=== PATIENT | female | born 1975 ===

== ENCOUNTER 2016-12-29 13:13 | Emergency (ER) | payer OTHER ==
[2016-12-29 13:20] VITALS: BP 103/57
--- NOTE | 2016-12-29 14:42 | RAD ---
Indication: Left rib pain. 3 views of left ribs demonstrates no fracture. No other bone or joint abnormality is identified. IMPRESSION: No fracture of the left ribs is noted.
--- NOTE | 2016-12-29 16:19 | UC ---
Truncal Trauma HPI - HPI Summary HPI Summary: LAST WEEK WAS CLEARING SHRUBBER FROM CAMP SITE, USING LARGE PRUNING MARILYN AND RESTING WEIGHT ONTO LEFT RIBS. SINCE THAT TIME HAS HAD LEFT RIB PAIN WORSE WITH MOVEMENT. NO SOB. NO CHEST PAIN. NO COUGH. NO RECENT TRAVEL. NO CALF PAIN. NO BIRTHCONTROL PILLS. NO NECK OR JAW PAIN. NO FEVER. NO BRUISING. NO RASHES. - History Of Current Complaint Chief Complaint: UCUpperExtremity Stated Complaint: RIB PAIN Time Seen by Provider: 12/29/16 13:40 Hx Obtained From: Patient Hx Last Menstrual Period: 12/24/16 Onset/Duration: Sudden Onset, Lasting Weeks, Still Present Onset Of Pain: Post Accident Severity Initially: Mild Severity Currently: Mild Pain Intensity: 2 Pain Scale Used: 0-10 Numeric Mechanism Of Injury: Blunt Trauma, Twisted Aggravating Factor(s): Movement Alleviating factor(s): Rest Associated Signs And Symptoms: Negative: SOB, Chest Pain, Hematuria, Abdominal Pain, Fever, Nausea, Vomiting - Allergies/Home Medications Allergies/Adverse Reactions: Allergies Allergy/AdvReac Type Severity Reaction Status Date / Time No Known Allergies Allergy Verified 12/29/16 13:20 Home Medications: Home Medications NK [No Home Medications Reported] 12/29/16 [History Confirmed 12/29/16] PMH/Surg Hx/FS Hx/Imm Hx Previously Healthy: Yes - Surgical History Surgical History: None - Family History Known Family History: Negative: Cardiac Disease, Respiratory Disease, Blood Disorder - Social History Occupation: Employed Full-time Lives: With Family Alcohol Use: Weekly Substance Use Type: None Smoking Status (MU): Never Smoked Tobacco Review of Systems Constitutional: Negative Skin: Negative Eyes: Negative ENT: Negative Respiratory: Other - LEFT SIDED RIB PAIN Cardiovascular: Negative Gastrointestinal: Negative Genitourinary: Negative Motor: Negative Neurovascular: Negative Musculoskeletal: Negative Neurological: Negative Psychological: Negative All Other Systems Reviewed And Are Negative: Yes Physical Exam Triage Information Reviewed: Yes Appearance: Well-Appearing, No Pain Distress, Well-Nourished Vital Signs: Initial Vital Signs Temp 99.3 F 12/29/16 13:16 Pulse 64 12/29/16 13:16 Resp 18 12/29/16 13:16 BP 103/57 12/29/16 13:16 Pulse Ox 100 12/29/16 13:16 Vital Signs Reviewed: Yes Eye Exam: Normal ENT Exam: Normal ENT: Positive: Normal ENT inspection, Hearing grossly normal, TMs normal Dental Exam: Normal Neck exam: Normal Respiratory Exam: Normal Respiratory: Positive: Chest non-tender, Lungs clear, Normal breath sounds, No respiratory distress Cardiovascular Exam: Normal Cardiovascular: Positive: RRR, No Murmur, Pulses Normal Abdominal Exam: Normal Musculoskeletal Exam: Normal Musculoskeletal: Positive: Strength Intact Neurological Exam: Normal Psychological Exam: Normal Psychological: Positive: Normal Response To Family Skin Exam: Normal Truncal Trauma Course/Dx - Differential Dx/Diagnosis Differential Diagnosis/HQI/PQRI: Cardiac Contusion, Chest Wall Contusion, Rib Fracture Provider Diagnoses: LEFT RIB STRAIN/SPRAIN Discharge - Discharge Plan Condition: Stable Disposition: HOME Patient Education Materials: Rib Contusion (ED) Referrals: [facility] [Outside] Charmaine Landa MD [Primary Care Provider] - Images Front/Back of Body, Lg (Shannon): 1 - PAIN HERE
== END 2016-12-29 15:11 | disposition home or self-care (01) ==
LOC: UCEAST 13:13
DX: S23.41XA Sprain of ribs, initial encounter (principal); X50.0XXA Overexertion from strenuous movement or load, initial encounter; X50.1XXA Overexertion from prolonged static or awkward postures, initial encounter; X50.3XXA Overexertion from repetitive movements, initial encounter; Y93.H2 Activity, gardening and landscaping; Y92.833 Campsite as the place of occurrence of the external cause; Y99.9 Unspecified external cause status
CPT/HCPCS: 99211; G0463